=== PATIENT | male | born 1945 | race Caucasian/White ===

== ENCOUNTER 2023-03-22 11:07 | Emergency (ER) | payer MEDICARE, SELFPAY ==
[2023-03-22] VITALS (12 sets, daily range): BP systolic 142–176; BP diastolic 73–95; PULSE 49–80; RESP 12–19; O2SAT 97–100
--- NOTE | ~2023-03-22 | XR_ITS ---
EXAMINATION: XR chest 2V DATE: 03/22/2023 11:51 INDICATION: Left rib injury. TECHNIQUE: Frontal and lateral views of the chest were obtained on 3 radiographs. COMPARISON: None. FINDINGS: A calcified right lung nodule is consistent with old granulomatous disease. There is mild a telectasis versus scarring in the lower lung zones. No pleural effusion or pneumothorax. The heart si ze is normal. Median sternotomy wires and mediastinal surgical clips are seen, likely from prior kimmy nary artery bypass grafting. There is a compression fracture of T6. IMPRESSION: 1. Mild atelectasis versus scarring in the lower lung zones. 2. Age-indeterminate T6 compression fracture. Reviewed, dictated and finalized at location A. [employer]
--- NOTE | 2023-03-22 12:08 | ECG_ITS ---
Measurements Intervals [place] Rate: 54 P: 50 CO: 158 QRS: -69 QRSD: 103 T: 93 QT: 427 QTc: 406 Interpretive Statements SINUS BRADYCARDIA ATRIAL PREMATURE COMPLEX LEFT ANTERIOR FASCICULAR BLOCK POOR R WAVE PROGRESSION, ANTERIOR LEADS BORDERLINE ST-T WAVE ABNORMALITY- HIGH LATERAL LEADS BASELINE ARTIFACT- I, II, AVR, AVL ABNORMAL ECG NO PREVIOUS ECG AVAILABLE FOR COMPARISON Electronically Signed On 03-22-2023 14:31:26 [employer] by Jani Parisi D.O.
--- NOTE | 2023-03-22 12:32 | ED.FALL ---
HPI - Fall General Chief Complaint: Fall Stated Complaint: fall- L post rib injuries Time Seen by Provider: 03/22/23 11:58 Source: patient Limitations: no limitations History of Present Illness HPI Narrative: This is a 77-year-old male who presents with left-sided chest pain. Patient sustained a fall approximately 1 week ago. He tripped but otherwise denies any loss consciousness or syncope. When he fell he landed on his left side and his back along the metal pole. Was 50 lb with the hospital so he did not present anymore for treatment. He states he initially had shortness of breath and chest pain but has not had that for several days at this point. The pain has persisted and has improving with taking Tylenol. He states he does feel dehydrated. He denies any paresthesias. He states he has a history of broken ribs. Incidentally, does mention that he has had malodorous urine. He denies any dysuria or hematuria but notes that he has urinary urgency and frequency. He has a history of enlarged prostate sees urologist. Related Data Allergies Allergy/AdvReac Type Severity Reaction Status Date / Time No Known Allergies Allergy Unknown Verified 07/03/16 09:09 [facility] Past Medical History Medical History (Updated 03/23/23 @ 00:00 by Kristy Mcdaniel) Broken ribs Enlarged prostate Myocardial infarction 2002 Surgical History Surgical History (Updated 03/22/23 @ 12:43 by Jen Fernández MD) History of chest tube placement 1966 (right) Hx of CABG 2002 Social History Social History (Updated 03/22/23 @ 12:43 by Jen Fernández MD) Additional occupation/education comments: Previously served in the (1966) Exam Narrative: GENERAL: Well-appearing, well-nourished, and in no acute distress. Appears younger than stated age HEAD: Normocephalic, atraumatic. EYES: PERRLA and EOMI. ENT: Nares clear, no rhinorrhea or epistaxis. Mucous membranes moist. NECK: Supple. CHEST: Clear to auscultation. No respiratory distress. No crepitus to palpation. Well-healing ecchymosis along left lateral chest (areas of yellow and bluish discoloration). Back: Healing ecchymosis (yellow) along mid-back. No TTP along thoracic spine; spinous processes are midline without any step-offs or deformity HEART: Bradycardic rate and rhythm. No murmur heard. Normal peripheral pulses radius. ABDOMEN: Soft, nontender, nondistended, EXTREMITIES: Normal range of motion. No edema. SKIN: Warm, dry, intact NEURO: No focal deficits. Alert and oriented x3. PSYCH: Normal mood and affect. Course Vital Signs Vital signs: Vital Signs Pulse Rate 57 L 03/22/23 11:22 Respiratory Rate 17 03/22/23 11:22 Pulse Oximetry 99 03/22/23 11:22 Pulse Rate 80 03/22/23 14:19 Respiratory Rate 16 03/22/23 14:19 Blood Pressure 142/84 H 03/22/23 14:19 Pulse Oximetry 98 03/22/23 14:19 MDM - Fall MDM Narrative Medical decision making narrative: Patient presents with some residual chest pain after a fall a week ago during which he landed on piece of metal. Patient did not have a syncopal episode. Chest x-ray without evidence of rib fracture. There is some evidence of prior granulomatous disease on the right and some mild atelectasis at the bases but otherwise without acute intrathoracic process. He does have a T6 fracture of unknown chronicity. No appreciable pulmonary contusion or pneumothorax. He was aware of the finding in the right lung and states this has been present since around the time he had a chest tube inserted while in [place]. Patient is otherwise well-appearing and states the pain is well controlled with Tylenol. He is advised that he can take ibuprofen or NSAID with this as well which he has available to him. Patient has persistent bradycardia on multiple assessments but with sinus pauses on palpation or on the monitor. A screening EKG is performed which does demonstrate sinus bradycardia as dictated belo
[2023-03-22 14:06] LABS: Appearance Urine Clear (Clear); Bilirubin Urine Negative (Negative); Blood Urine Negative (Negative); Color Urine Yellow (Yellow); Glucose Urine UA Negative (Negative); Ketones Urine Negative (Negative); Leukocyte Esterase Ur Negative LEU/UL (Negative); Nitrate Urine Negative (Negative); Protein Urine Negative (Negative); Specific Grav Ur 1.012 (1.001-1.035)
[2023-03-22 14:10] LABS: Add Urine Microscopic? NO
== END 2023-03-22 14:20 | disposition home or self-care (01) ==
PROVIDERS: Emergency Provider Student in an Organized Health Care Education/Training Program; PCP Internal Medicine
DX: S22.050A Wedge compression fracture of T5-T6 vertebra, initial encounter for closed fracture (principal); I49.1 Atrial premature depolarization; N40.0 Benign prostatic hyperplasia without lower urinary tract symptoms; I25.2 Old myocardial infarction; Z95.1 Presence of aortocoronary bypass graft; I44.4 Left anterior fascicular block; R94.31 Abnormal electrocardiogram [ECG] [EKG]; W01.198A Fall on same level from slipping, tripping and stumbling with subsequent striking against other object, initial encounter
CPT/HCPCS: 71046; 81003; 93005; 99283